=== PATIENT | male | born 1985 | race Caucasian/White ===

== ENCOUNTER 2025-05-16 16:09 | Emergency (ER) | payer SELFPAY ==
[~2025-05-16] VITALS: Ht 175.3 cm; Wt 75.0 kg
[2025-05-16 16:18] VITALS: BP 130/100; PULSE 91; RESP 16; TEMP 98.6; O2SAT 99
== END 2025-05-16 21:56 | disposition home or self-care (01) ==
LOC: ER 16:09
DX: K59.00 Constipation, unspecified (principal)
CPT/HCPCS: 74176; 99284